=== PATIENT | female | born 1995 | race Caucasian/White ===

== ENCOUNTER 2019-06-23 23:21 | Emergency (ER) | payer SELFPAY ==
[~2019-06-23 23:21] MED LIST: BACTRIM DS 8001 TAB PO; CEFTIN 250250 MG/TAB PO; DIAMOX125 MG PO; FELDENE10 MG PO; K-DUR20 MEQ PO; RITALIN LA20 MG PO; ULTRAM 50MG TAB50 MG PO; ZOFRAN8 MG PO
[2019-06-24 07:32] VITALS: BP 106/75; PULSE 90
== END 2019-06-24 07:39 | disposition home or self-care (01) ==
LOC: COL.ER 23:21
PROVIDERS: Nurse Practitioner
DX: F10.129 Alcohol abuse with intoxication, unspecified (principal); Y90.8 Blood alcohol level of 240 mg/100 ml or more
CPT/HCPCS: J7030